=== PATIENT | male | born 1995 | race Caucasian/White ===

== ENCOUNTER 2019-10-06 12:11 | Emergency (ER) | payer OTHER, SELFPAY ==
[~2019-10-06] VITALS: Ht 188 cm; Wt 74.8 kg
[2019-10-06 12:11] VITALS: BP 121/78; Ht 188 cm; Wt 74.8 kg
== END 2019-10-06 12:56 | disposition home or self-care (01) ==
LOC: ED 12:11
DX: U07.1 COVID-19 (principal)
CPT/HCPCS: U0003-CS